=== PATIENT | female | born 1995 | race Caucasian/White ===

== ENCOUNTER → 2025-01-05 | Emergency (ER) ==
[~2025-01-05] VITALS: Ht 162.6 cm; Wt 67.5 kg
[~2025-01-05] MED LIST: IBUP-1022 PO
[2025-01-05 21:13] VITALS: BP 112/62; TEMP 97.2; O2SAT 97
[2025-01-05 21:46] LABS: KETONE, URINE AUTO RFX NEGATIVE (NEGATIVE); LEUKOCYTE ESTERASE UR AUTO RFX NEGATIVE (NEGATIVE); MUCUS, URINE RFX SMALL (NEGATIVE); NITRITE, URINE AUTO RFX NEGATIVE (NEGATIVE); RBC, URINE AUTO RFX 1 /HPF (0-3); SQUAM EPITHELIAL CELL UR AURFX 8 /HPF (0-6); WBC, URINE AUTO RFX 1 /HPF (0-3)
[2025-01-05 21:55] LABS: BASO % 0.5 % (0.0-1.0); EOS # 0.2 10^3/uL (0.0-0.5); EOS % 2.3 % (0.0-3.0); HEMATOCRIT 40.1 % (36.0-47.0); HEMOGLOBIN 14.1 g/dl (12.0-15.5); LYMPH # 2.6 10^3/uL (1.5-5.0); LYMPH % 30.1 % (24.0-44.0); MEAN CORPUSCULAR HEMOGLOBIN 32.7 pg (27.0-33.0); MEAN CORPUSCULAR HGB CONC 35.2 g/dl (32.0-36.5); MONO % 11.9 % (2.0-8.0); NEUTROPHILS # 4.7 10^3/uL (1.5-8.5); NEUTROPHILS % 54.9 % (36.0-66.0); PLATELET COUNT, AUTOMATED 331 10^3/uL (150-450); RED BLOOD COUNT 4.31 10^6/uL (4.00-5.40); WHITE BLOOD COUNT 8.6 10^3/uL (4.0-10.0)
[2025-01-05 22:27] LABS: LIPASE 26 U/L (12-53)
[2025-01-05 22:28] LABS: HCG, SERUM QUALITATIVE NEGATIVE (NEGATIVE)
[2025-01-05 22:29] LABS: ALBUMIN 4.2 G/DL (3.2-5.2); ALKALINE PHOSPHATASE 63 U/L (35-104); ALT/SGPT 10 U/L (7.0-40); AST/SGOT 12 U/L (<34); BILIRUBIN,DIRECT 0.1 MG/DL (<0.4); BILIRUBIN,TOTAL 0.4 MG/DL (0.3-1.2); BLOOD UREA NITROGEN 12 MG/DL (9-23); CALCIUM LEVEL 9.2 MG/DL (8.5-10.1); CARBON DIOXIDE LEVEL 20 MMOL/L (20-31); CHLORIDE LEVEL 108 MMOL/L (98-107); CREATININE FOR GFR 0.78 MG/DL (0.55-1.30); GLOMERULAR FILTRATION RATE > 60.0 (>60); GLUCOSE, FASTING 85 MG/DL (60-100); POTASSIUM SERUM 3.8 MMOL/L (3.5-5.1); SODIUM LEVEL 141 MMOL/L (136-145); TOTAL PROTEIN 7.2 G/DL (5.7-8.2)
== END | disposition left against medical advice (07) ==
LOC: M ED 20:51
DX: Z53.21 Procedure and treatment not carried out due to patient leaving prior to being seen by health care provider (principal)

== ENCOUNTER 2025-01-11 10:41 | Emergency (ER) | payer OTHER, SELFPAY ==
[~2025-01-11] VITALS: Ht 162.6 cm; Wt 65.9 kg
[2025-01-11] MEDS: IBUPROFEN 600MG TAB PO ONE (12:46)
[2025-01-11] MEDS ORDERED: IBUP-1022 PO (13:35)
[2025-01-11 13:42] VITALS: BP 114/81; TEMP 97.6; O2SAT 98
== END 2025-01-11 13:45 | disposition home or self-care (01) ==
LOC: M ED 10:41
DX: R22.42 Localized swelling, mass and lump, left lower limb (principal); M25.572 Pain in left ankle and joints of left foot; F17.290 Nicotine dependence, other tobacco product, uncomplicated; Z79.1 Long term (current) use of non-steroidal anti-inflammatories (NSAID)

== ENCOUNTER 2025-01-29 00:40 | Emergency (ER) | payer OTHER, SELFPAY ==
[~2025-01-29] VITALS: Ht 162.6 cm; Wt 63.1 kg
[2025-01-29 01:40] LABS: BASO % 0.5 % (0.0-1.0); EOS # 0.1 10^3/uL (0.0-0.5); EOS % 1.5 % (0.0-3.0); HEMATOCRIT 43.2 % (36.0-47.0); HEMOGLOBIN 14.6 g/dl (12.0-15.5); LYMPH # 1.8 10^3/uL (1.5-5.0); LYMPH % 24.1 % (24.0-44.0); MEAN CORPUSCULAR HEMOGLOBIN 32.7 pg (27.0-33.0); MEAN CORPUSCULAR HGB CONC 33.8 g/dl (32.0-36.5); MEAN CORPUSCULAR VOLUME 96.6 fl (80.0-96.0); MONO # 0.7 10^3/uL (0.0-0.8); MONO % 9.8 % (2.0-8.0); NEUTROPHILS # 4.7 10^3/uL (1.5-8.5); NEUTROPHILS % 63.8 % (36.0-66.0); PLATELET COUNT, AUTOMATED 276 10^3/uL (150-450); RED BLOOD COUNT 4.47 10^6/uL (4.00-5.40); WHITE BLOOD COUNT 7.4 10^3/uL (4.0-10.0)
[2025-01-29 01:46] LABS: INR 1.06; PARTIAL THROMBOPLASTIN TIME 35.8 SECONDS (24.8-34.2); PROTHROMBIN TIME 14.2 SECONDS (12.5-14.5)
[2025-01-29 01:58] LABS: HCG, SERUM QUALITATIVE NEGATIVE (NEGATIVE)
[2025-01-29 02:00] LABS: BLOOD UREA NITROGEN 10 MG/DL (9-23); CALCIUM LEVEL 9.1 MG/DL (8.5-10.1); CARBON DIOXIDE LEVEL 24 MMOL/L (20-31); CHLORIDE LEVEL 108 MMOL/L (98-107); CK-MB VALUE MASS < 1.0 NG/ML (<3.6); CREATININE FOR GFR 0.74 MG/DL (0.55-1.30); GLOMERULAR FILTRATION RATE > 90.0 (>60); GLUCOSE, FASTING 83 MG/DL (60-100); POTASSIUM SERUM 3.6 MMOL/L (3.5-5.1); SODIUM LEVEL 141 MMOL/L (136-145)
[2025-01-29] MEDS ORDERED: ISOVUE-370 76% 100ML VIAL As Ordered ONE (02:00)
[2025-01-29 02:02] LABS: CPK CREATINE PHOSPHOKINASE 59 U/L (34-145); MB/CK RELATIVE INDEX 1.69 (< OR =4)
[2025-01-29] MEDS: ASPIRIN 325 MG TAB PO ONE (04:01)
[2025-01-29] MEDS: NS (Normal Saline) 0.9% 1,000 ML IV ONE (09:56)
[2025-01-29] MEDS ORDERED: MECL-209 PO (12:28)
[2025-01-29 12:30] VITALS: BP 115/88; O2SAT 99
[2025-01-29 12:44] VITALS: TEMP 97.2
== END 2025-01-29 12:53 | disposition home or self-care (01) ==
LOC: M ED 00:40 → EDBD 00:40 → M ED 12:53
DX: R20.2 Paresthesia of skin (principal); H81.4 Vertigo of central origin; F90.9 Attention-deficit hyperactivity disorder, unspecified type; F41.9 Anxiety disorder, unspecified; F17.290 Nicotine dependence, other tobacco product, uncomplicated; F12.10 Cannabis abuse, uncomplicated; F10.10 Alcohol abuse, uncomplicated; Z79.1 Long term (current) use of non-steroidal anti-inflammatories (NSAID); Z79.899 Other long term (current) drug therapy
CPT/HCPCS: 36415; 70450; 70496; 70498; 70544; 70551; 72141; 80048; 82550; 82553; 84484; 84703; 85025; 85610; 85730; 93005; 93041; 94760; 99285; Q9967